=== PATIENT | female | born 1990 | race Caucasian/White ===

== ENCOUNTER 2021-05-16 13:35 | Emergency (ER) | payer OTHER ==
[2021-05-16 16:13] LABS: BASOPHIL 0.3 % (0-2); EOSINOPHIL 1.9 % (0-5); HCT 38.7 % (37.0-47.0); HGB 12.4 g/dl (12.5-16.0); LYMPHOCYTE 14.9 % (15-48); MCH 27.9 pg (25.0-31.0); MCV 87.2 fL (78.0-100.0); MONOCYTE 4.6 % (0-12); MPV 9.8 fL (6.0-9.5); NRBC 0; PLT 281 K/uL (150-400); RBC 4.44 M/uL (4.20-5.40); RDW 14.6 % (11.5-14.0); WBC 10.6 K/uL (4.0-10.5)
[2021-05-16 16:38] LABS: BUN/CREAT RATIO (CALC) 11.6 RATIO; CREATININE 0.69 mg/dL (0.51-0.95); POTASSIUM 4.4 mmol/L (3.5-5.1)
[2021-05-16 18:12] LABS: BILIRUBIN NEGATIVE (NEGATIVE); BLOOD 3+ Ery/uL (NEGATIVE); CLARITY CLOUDY (CLEAR); COLOR RED (YELLOW); GLUCOSE (U) NORMAL (NORMAL); LEUKOCYTES TRACE Leu/uL (NEGATIVE); NITRITE NEGATIVE (NEGATIVE); PROTEIN 1+ mg/dL (NEGATIVE); UROBILINOGEN 0.2 mg/dL (0.2-1.0)
[2021-05-16 18:17] LABS: BACTERIA TRACE; URINARY RBC TNTC
== END 2021-05-16 18:00 | disposition home or self-care (01) ==
LOC: FER 13:35
PROVIDERS: Internal Medicine
DX: O46.92 Antepartum hemorrhage, unspecified, second trimester (principal); O99.891 Other specified diseases and conditions complicating pregnancy; R10.9 Unspecified abdominal pain; O16.1 Unspecified maternal hypertension, first trimester; Z3A.15 15 weeks gestation of pregnancy
CPT/HCPCS: 36415; 76815; 80048; 81001; 84702; 85025